=== PATIENT | female | born 1985 | race Caucasian/White ===

== ENCOUNTER 2020-04-30 07:40 | Outpatient (REF) | payer OTHER, SELFPAY | END 2020-04-30 07:41 | disposition home or self-care (01) | LOC: HO.LAB 07:40 | PROVIDERS: PCP Pediatrics; Visit Provider Internal Medicine | DX: Z20.828 Contact with and (suspected) exposure to other viral communicable diseases (principal) | CPT/HCPCS: 87635 ==

== ENCOUNTER 2020-07-15 16:23 | Outpatient (REF) | payer OTHER, SELFPAY | END 2020-07-15 16:24 | disposition home or self-care (01) | LOC: HO.LAB 16:23 | PROVIDERS: Visit Provider Internal Medicine | DX: Z20.828 Contact with and (suspected) exposure to other viral communicable diseases (principal) | CPT/HCPCS: 36415; C9803; U0003 ==